=== PATIENT | male | born 1985 | race Caucasian/White ===

== ENCOUNTER 2016-07-02 07:36 | Inpatient (IN) | payer MEDICARE ==
[~2016-07-02] VITALS: Ht 180.3 cm; Wt 91.2 kg
[2016-07-02] MEDS ORDERED: HYDROmorphone 1 MG/ML (DILAUDID) SYRINGE IV ONE ×2 (07:40→09:50)
[2016-07-02] MEDS ORDERED: diphenhydrAMINE 50 MG/ML INJ (BENADRYL) IV ONE (07:40)
--- NOTE | 2016-07-02 08:18 | NUR ---
Patient reports: "I'm sleepy." Unable to rate pain response. Relaxed, eyes closed.
[2016-07-02 08:24] LABS: BASOPHILS % (AUTO) 1 % (0-2); EOSINOPHILS # (AUTO) 0.2 10^3uL; EOSINOPHILS % (AUTO) 1 % (0-4); LYMPHOCYTES # (AUTO) 3.4 X10^3; MEAN CORPUSCULAR HEMOGLOBIN 31.1 PG (26.0-34.0); MEAN CORPUSCULAR VOLUME 85 FL (80-100); MONOCYTES # (AUTO) 1.2 X10^3; MONOCYTES % (AUTO) 8 % (3-11); NEUTROPHILS # (AUTO) 9.7 X10^3; NEUTROPHILS % (AUTO) 66 % (51-67); PLATELET COUNT 286 10^3uL (150-450); WHITE BLOOD COUNT 14.65 10^3uL (4.0-11.0)
[2016-07-02 08:25] LABS: MEAN CORPUSCULAR HGB CONC 36.4 g/dL (31.0-37.0)
[2016-07-02 08:41] LABS: ALBUMIN 4.4 g/dL (3.4-5.0); ALKALINE PHOSPHATASE 79 U/L (38-126); AMYLASE* 586 U/L (25-115); ANION GAP 15.9 MEQ/L (3-15); BUN/CREATININE RATIO 16 (10-20); TOTAL PROTEIN 7.7 g/dL (6.4-8.5)
--- NOTE | 2016-07-02 09:08 | NUR ---
Patient is vomiting. Order for Zofran received.
[2016-07-02 09:09] LABS: LIPASE* 12706 U/L (23-300)
[2016-07-02] MEDS ORDERED: ONDANSETRON 2 MG/ML (Z0FRAN) 2 ML VIAL IV ONE (09:10)
[2016-07-02 09:32] LABS: BILIRUBIN,URINE Negative (Negative); CLARITY,URINE Clear; COLOR,URINE Yellow; GLUCOSE, URINE (UA) Trace (Negative); LEUKOCYTE ESTERASE ,URINE Negative (Negative); PH,URINE 5.5 (5.0 - 8.0); UROBILINOGEN,URINE 0.2 mg/dL (0.2-1.0)
[2016-07-02 09:47] LABS: URINE CENTRIFUGED VOLUME 12 mL
[2016-07-02 09:49] LABS: AMPHETAMINE SCREEN, URINE Negative (Negative); CANNABINOID SCREEN, URINE Negative (Negative); METHAMPHETAMINE SCREEN URINE S NEGATIVE (NEGATIVE); OPIATE SCREEN URINE Positive (Negative); PROPOXYPHENE STAT NEGATIVE (NEGATIVE); RBC,URINE None Seen /HPF
[2016-07-02 10:10] VITALS: BP 154/86
--- NOTE | 2016-07-02 10:10 | NUR ---
Patient admitted to room 308 from ER. Rates pain at 8/10 at this time. Pain medication was given in ER at 0950.
[2016-07-02] MEDS ORDERED: ENOXAPARIN 40 MG/0.4 ML (LOVENOX) SYR SC SCH (10:30)
[2016-07-02] MEDS ORDERED: ONDANSETRON 2 MG/ML (Z0FRAN) 2 ML VIAL IV PRN (10:30)
[2016-07-02] MEDS ORDERED: NS FLUSH 10 ML PRN IV (10:35)
[2016-07-02] MEDS ORDERED: NS FLUSH 3 ML PRN IV (10:35)
[2016-07-02] MEDS: HYDROmorphone 1 MG/ML (DILAUDID) SYRINGE IV PRN ×2 (11:49→14:06)
[2016-07-02] MEDS ORDERED: diphenhydrAMINE 50 MG/ML INJ (BENADRYL) IV PRN (14:50)
[2016-07-02] MEDS ORDERED: HYDROmorphone PCA 30 MG/30 ML (DILAUDID) VIAL IV PRN (14:50)
[2016-07-02] MEDS ORDERED: NALOXONE 0.4 MG/ML (NARCAN) 1 ML VIAL IV PRN (15:05)
[2016-07-02 16:00] VITALS: BP 140/90
--- NOTE | 2016-07-02 16:30 | NUR ---
Patient has had better pain control with the NETWORK SERVICES PROJECT MANAGER in place. Treated intermittent nausea. He remains NPO.
[2016-07-02 17:00] VITALS: BP 152/96
--- NOTE | 2016-07-02 17:24 | NUR ---
MED REC COMPLETE--current med list obtained from patient interview and retail pharmacy ([facility]). Patient confirmed that he is receiving Toujeo samples. Completed by Deepa Gloria, Pharm. D. Candidate 2017.
[2016-07-02 18:00] VITALS: BP 138/96
[2016-07-02] MEDS ORDERED: LACTATED RINGERS 1,000 ML IV SCH (18:55)
[2016-07-02] MEDS ORDERED: LACTATED RINGERS 1,000 ML IV ONE (19:12)
[2016-07-02 19:16] LABS: MEAN CORPUSCULAR HEMOGLOBIN 30.8 PG (26.0-34.0); MEAN CORPUSCULAR HGB CONC 34.6 g/dL (31.0-37.0); MEAN CORPUSCULAR VOLUME 89 FL (80-100); PLATELET COUNT 252 10^3uL (150-450); WHITE BLOOD COUNT 20.48 10^3uL (4.0-11.0)
[2016-07-02 19:32] LABS: BAND NEUTROPHILS % 2 % (0-6); EOSINOPHILS % 0 % (0-4); LYMPHOCYTES # 1.4 #; MONOCYTES # 1.2 #; MONOCYTES % 6 % (3-11); RBC MORPH NORMAL (NORMAL); SEGMENTED NEUTROPHILS % 85 % (51-67); TOTAL CELLS COUNTED 100
[2016-07-02 19:33] LABS: ALBUMIN 4.3 g/dL (3.4-5.0); ANION GAP 15.6 MEQ/L (3-15); MAGNESIUM* 1.4 mg/dL (1.6-2.3); PHOSPHORUS 4.9 mg/dL (2.4-4.9)
--- NOTE | 2016-07-02 19:50 | NUR ---
Called report to MICU in [place].
[2016-07-02 20:01] VITALS: BP 144/95
--- NOTE | 2016-07-02 20:10 | NUR ---
All patient belongings including telephone werre sent with the patient's [id number].
--- NOTE | 2016-07-02 20:20 | NUR ---
Gave report to EMS.
[2016-07-03] MEDS ORDERED: KETOROLAC 15 MG/ML (TORADOL) 1 ML VIAL IV SCH
[2016-07-03] MEDS ORDERED: NICOTINE 21 MG (NICODERM) PATCH TD SCH (09:00)
[2016-07-03] MEDS ORDERED: NS FLUSH 3 ML DAILY IV SCH (09:00)
== END 2016-07-02 20:36 | disposition short-term general hospital (02) | DRG 439 ==
LOC: EDUNIT# 07:36 → ED 07:37 → MED/SURG 09:45
PROVIDERS: ADMIT Family Medicine; ATTEND Family Medicine
DX: K85.10 Biliary acute pancreatitis without necrosis or infection (principal); R65.10 Systemic inflammatory response syndrome (SIRS) of non-infectious origin without acute organ dysfunction; Q45.3 Other congenital malformations of pancreas and pancreatic duct; K86.1 Other chronic pancreatitis; E11.9 Type 2 diabetes mellitus without complications; K21.9 Gastro-esophageal reflux disease without esophagitis; I10 Essential (primary) hypertension; G89.29 Other chronic pain; F17.200 Nicotine dependence, unspecified, uncomplicated; Z79.84 Long term (current) use of oral hypoglycemic drugs; Z79.4 Long term (current) use of insulin
CPT/HCPCS: 36415; 74176; 80053; 80069; 80307; 80320; 81003; 81015; 82150; 83690; 83735; 85025; 86140; 94762; 96361; 96374; 96375; 96376; 99282; 99284

== ENCOUNTER → 2016-07-02 | Outpatient (CLI) | payer MEDICARE | LOC: EMS 07:25 | PROVIDERS: ATTEND Family Medicine | DX: K85.90 Acute pancreatitis without necrosis or infection, unspecified (principal); K86.1 Other chronic pancreatitis ==

== ENCOUNTER 2016-10-07 08:14 | Emergency (ER) | payer MEDICARE ==
[~2016-10-07] VITALS: Ht 180.3 cm; Wt 91.0 kg
[~2016-10-07 08:14] MED LIST: AMOX-358 PO; CLON0.1T PO; CYCL10TA45 PO; HYDR-3811 PO; HYDR-3881 PO; INSU300I SQ; LISI1TAB10 PO; LSNP20T PO; METF500T4 PO; OMEP20TA PO; OMEP40CA36 PO; ONDAN4ODT PO; PROM25TA14 PO; SMV10T PO; SMV20T PO
--- OUTSIDE RECORDS SUMMARY | 2016-10-07 08:18 | XMS REPORT | Continuity of Care Document ---
Author Author [facility] Organization [facility] Address Unknown Phone Unavailable Care Team Providers Care Seasonal Clerk Name Role Phone Boo Becerra PCP Unavailable Source Comments Some departments are not documenting in the electronic medical record. If you do not see the information that you expected, contact Release of Information in the Health Information Management department at [phone] for further assistance in locating additional records.[facility] Active Allergies and Adverse Reactions No Known Allergies Current Medications Prescription Sig. Disp. Refills Start End Date Status Date hydromorphone (DILAUDID) Take 1-2 Tabs by mouth 90 Tab 0 10/23/19 Active 2 mg tablet Every 4 Hours as needed. 10 lactobacillus rhamnosus, Take 1 Cap by mouth Twice 90 Cap 3 10/23/19 Active GG, (CULTURELLE) 10 Daily With Meals. 10 billion cell Cap meropenem (MERREM) 500 Administer 20 mL through 300 mL 0 30/20 Active mg/10 mL SolR vein Every 8 Hours. 10 Dispense QS x 10 more days to complete a 14 day course senna/docusate Take 1 Tab by mouth Twice 60 Tab 3 20 Active (SENOKOT-S) 8.6/50 mg Daily. [address] Take 1 Cap by mouth 30 Cap 3 20 Active (PREVACID) 30 mg capsule Daily. 10 Active Problems Problem Noted Date Hypertension 10/13/2009 Pancreatic divisum 10/13/2009 SIRS (systemic inflammatory response syndrome) (HCC) 10/12/2009 Lactic acidosis 10/11/2009 Tachycardia 10/11/2009 Pancreatitis 10/09/2009 Nausea & vomiting 10/09/2009 Abdominal pain 10/09/2009 Leukocytosis 10/09/2009 Social History Tobacco Use Types Packs/Day Years Used Date Current Every Day Smoker Cigarettes 0.5 10 Alcohol Use Drinks/Week oz/Week Comments No Last Filed Vital Signs Vital Sign Reading Time Taken Blood Pressure 137/90 10/22/2009 11:46 AM CDT Pulse 76 10/22/2009 11:46 AM CDT Temperature 36.3 C (97.3 F) 10/22/2009 11:46 AM CDT Respiratory Rate - - Height 1.803 m (5' 10.98") 10/18/2009 1:00 PM CDT Weight 90.13 kg (198 lb 11.2 oz) 10/22/2009 7:00 AM CDT Body Mass Index 27.73 10/22/2009 7:00 AM CDT Oxygen Saturation 100% 10/22/2009 11:46 AM CDT Plan of Care Health Maintenance Due Date Last Done Comments Physical (Comprehensive) 1990 Exam Pertussis Vaccine 1994 Tetanus Vaccine 2000 Influenza Vaccine 01/24/2017 Results from Last 3 Months Not on file
--- OUTSIDE RECORDS SUMMARY | 2016-10-07 08:18 | XMS REPORT | Continuity of Care Document ---
Author Author [facility] Organization [facility] Address Unknown Phone Unavailable Care Team Providers Care Primer Supervisor Name Role Phone Boo Becerra PCP Unavailable Source Comments Some departments are not documenting in the electronic medical record. If you do not see the information that you expected, contact Release of Information in the Health Information Management department at [phone] for further assistance in locating additional records.[facility] Active Allergies and Adverse Reactions No Known [...]
[2016-10-07] MEDS: KETOROLAC 30 MG/ML (TORADOL) 1 ML VIAL IV ONE (08:35)
[2016-10-07] MEDS: SODIUM CHLORIDE FLUSH 3 ML SYR IV ONE (08:35)
[2016-10-07] MEDS: ONDANSETRON 2 MG/ML (Z0FRAN) 2 ML VIAL IV ONE (08:36)
[2016-10-07] MEDS: SODIUM CHLORIDE FLUSH 10 ML SYR IV PRN (08:36)
[2016-10-07 08:46] LABS: BASOPHILS % (AUTO) 1 % (0-2); EOSINOPHILS # (AUTO) 0.1 10^3uL; EOSINOPHILS % (AUTO) 2 % (0-4); LYMPHOCYTES # (AUTO) 2.3 X10^3; MEAN CORPUSCULAR HEMOGLOBIN 29.8 PG (26.0-34.0); MEAN CORPUSCULAR HGB CONC 35.4 g/dL (31.0-37.0); MEAN CORPUSCULAR VOLUME 84 FL (80-100); MEAN PLATELET VOLUME 11.1 FL (6.0-9.5); MONOCYTES # (AUTO) 0.9 X10^3; MONOCYTES % (AUTO) 12 % (3-11); NEUTROPHILS # (AUTO) 4.6 X10^3; NEUTROPHILS % (AUTO) 58 % (51-67); PLATELET COUNT 228 10^3uL (150-450); WHITE BLOOD COUNT 8.06 10^3uL (4.0-11.0)
[2016-10-07 08:55] LABS: ALBUMIN 4.4 g/dL (3.4-5.0); ANION GAP 14.7 MEQ/L (3-15); CALCULATED IONIZED CALCIUM 3.9 mg/dL (3.8-4.6); TOTAL PROTEIN 7.7 g/dL (6.4-8.5)
[2016-10-07] MEDS: HYDROmorphone 1 MG/ML (DILAUDID) SYRINGE IV ONE ×2 (08:57→10:00)
[2016-10-07 09:53] LABS: BILIRUBIN,URINE Negative (Negative); CLARITY,URINE Clear; COLOR,URINE Yellow; GLUCOSE, URINE (UA) 2+ (Negative); LEUKOCYTE ESTERASE ,URINE Negative (Negative); PH,URINE 5.5 (5.0 - 8.0); UROBILINOGEN,URINE 0.2 mg/dL (0.2-1.0)
[2016-10-07 10:00] LABS: RBC,URINE None Seen /HPF; URINE CENTRIFUGED VOLUME 12 mL
[2016-10-07 10:01] LABS: AMPHETAMINE SCREEN, URINE Negative (Negative); CANNABINOID SCREEN, URINE Negative (Negative); METHAMPHETAMINE SCREEN URINE S NEGATIVE (NEGATIVE); OPIATE SCREEN URINE Positive (Negative); PROPOXYPHENE STAT NEGATIVE (NEGATIVE)
[2016-10-07 10:25] VITALS: BP 158/104
--- NOTE | 2016-10-07 10:26 | NUR ---
pt refused admit
[2016-10-07] MEDS ORDERED: LSNP20T PO (23:00)
[2016-10-07] MEDS ORDERED: SMV10T PO (23:00)
[2016-10-07] MEDS ORDERED: METF500T4 PO (23:00)
[2016-10-08] MEDS ORDERED: HYDR-3811 PO (10:09)
[2016-10-08] MEDS ORDERED: [UNRECOGNIZED DRUG - CODE] PO (10:09)
== END 2016-10-07 11:07 | disposition home or self-care (01) ==
LOC: ED 08:15
DX: K85.90 Acute pancreatitis without necrosis or infection, unspecified (principal); K86.1 Other chronic pancreatitis; Z79.899 Other long term (current) drug therapy
CPT/HCPCS: 36415; 80053; 80307; 81003; 81015; 82150; 83690; 85025; 86140; 96361; 96374; 96375; 96376; 99284; J1170; J1885; J2405; J7030; 99283

== ENCOUNTER 2016-10-07 21:08 | Inpatient (IN) | payer MEDICARE ==
[~2016-10-07] VITALS: Ht 180.3 cm; Wt 94.5 kg
--- OUTSIDE RECORDS SUMMARY | 2016-10-07 21:14 | XMS REPORT | Continuity of Care Document ---
Author Author [facility] Organization [facility] Address Unknown Phone Unavailable Care Team Providers Care Fish Pitcher Name Role Phone Boo Becerra PCP Unavailable Source Comments Some departments are not documenting in the electronic medical record. If you do not see the information that you expected, contact Release of Information in the Health Information Management department at [phone] for further assistance in locating additional records.[facility] Active Allergies and Adverse Reactions No Known [...]
--- OUTSIDE RECORDS SUMMARY | 2016-10-07 21:14 | XMS REPORT | Continuity of Care Document ---
Author Author [facility] Organization [facility] Address Unknown Phone Unavailable Care Team Providers Care Bull Bucker Name Role Phone Boo Becerra PCP Unavailable Source Comments Some departments are not documenting in the electronic medical record. If you do not see the information that you expected, contact Release of Information in the Health Information Management department at [phone] for further assistance in locating additional records.[facility] Active Allergies and Adverse Reactions No Known [...]
[2016-10-07] MEDS ORDERED: ONDANSETRON 2 MG/ML (Z0FRAN) 2 ML VIAL IV ONE (21:55)
[2016-10-07] MEDS ORDERED: HYDROmorphone 1 MG/ML (DILAUDID) SYRINGE IV ONE (21:55)
--- NOTE | 2016-10-07 22:26 | History and Physical (E) ---
History & Physical PCP: Jad Dallas MD CC: Abdominal pain, n/v HPI: This is a 31 y/o w/ h/o chronic pancreatitis, DM1 and chronic pain who presented to ED at [place] earlier today w/ pain and was treated w/ IV fluids & Dilaudid and at that time did not want to be admitted so came back tonight w/ persistent pain and n/v. Patient denies f/c/s, denies chest pain and denies shortness of breath. Pain and n/v improved w/ Dilaudid and Zofran and currently on IVFs. No labs done tonight. Earlier today had labs showing elevated lipase and amylase. Patient to be admitted to the Hospitalist service for further evaluation and management. PMH: Type 1 DM, Chronic Pancreatitis (has been evaluated in [place] in the past ), Chronic pain; GERD, pancreatic divisum, migraine HAs, HTN PSH; Pancreatic Surgery and stent placement and removal in the past ALLERGIES: Please see list at end of report. HOME MEDICATIONS: Please see list at end of report. FH: Mother and father w/ DM; mother w/ HTN; h/o Pancreatic divisum in extended family SH: , has 3 children; + tobacco use ROS CONSTITUTION: Denies weight loss or gain. Denies fever or chills. HEENT: No change in vision or hearing. No sores in mouth, sore throat. CV: No chest pain, palpitations. PULM: No cough, shortness of breath, difficulty breathing. GI: See above; No diarrhea. No blood in stool. : No dysuria. No blood in urine. MS: No new muscle or joint aches and pains. NEURO: No numbness or tingling. No weakness. INTEG: No rashes, lesions, or sores. ENDO: No heat or cold intolerance. No polydipsia or polyuria. HEME/LYMPH: No easy bruising or bleeding. No swollen glands. PSYCH: No change in mood or behavior. OBJECTIVE V/S: Vital Signs Date Time Temp Pulse Resp B/P Pulse Ox O2 Delivery O2 Flow Rate FiO2 10/07/16 21:29 98.9 74 20 151/97 98 Room Air GEN: Awake, alert, oriented, NAD HEENT: EOMI, PERRL, somewhat dry oral mucosa. CV: RRR S1 S2 normal with no murmur LUNGS: CTA B ABD: Soft, non-distended; with normal bowel sounds. +ttp epigastric area EXTR: No C/C/E. Normal peripheral pulses. INTEG: No rash. NEURO: No focal motor neuro deficit. Weight: 91 kg LABS pH = 7.4; Mg = 1.4; Amylase = 411; Lipase = 10,247; A1C = 6.3; Glucose = 201; WBC = 8; Hgb = 16.8; For remainder of labs please refer to EMR - reviewed by me today MICRO IMAGING ASSESSMENT 1) Acute on Chronic Pancreatitis 2) Acute on Chronic Pain 3) Acute Dehydration 4) DM type 1 though patient unsure 5) GERD 6) HTN 7) HLD 8) Acute hypomagnesemia POA 9) Tobacco use PLAN Admit to Hospitalist Service [facility] scale insulin Labs in the AM - CMP, BMP, lipase, lipid profile IVFs that of NS to run at 125 cc/hour Dilaudid 1mg IV q 2 hours prn Protonix 40mg IV q 24 hours NPO except for sips/chips Blood glucose q 4 hours and prn Hypoglycemic protocol Zofran 4mg IV q 4 hours prn n/v Mag Ox 400mg po daily Patient does not want nicotine patch Allergies/Home Medications Allergies: Coded Allergies: No Known Drug Allergies (Unverified , 10/07/16) Reported Home Medications Scheduled Insulin Glargine,Hum.rec.anlog (Junie Schultz) 8 UNIT SQ HS (Reported) Lisinopril (Lisinopril) 20 MG PO DAILY (Reported) Metformin HCl (Metformin HCl) 500 MG PO BID (Reported) Omeprazole (Omeprazole) 40 MG PO DAILY@0800 (Reported) Simvastatin (Simvastatin) 10 MG PO HS (Reported) Copies to: End of Report . LAUREN VALLE MD October 07, 2016 22:26
--- NOTE | 2016-10-07 22:35 | NUR ---
Pt arrives to 306 via w/c from ED, accompanied by his . Rates abd pain at 6/10. Resp even and non labored on RA. See admission assessment for further details.
[2016-10-07 22:42] VITALS: BP 126/83
[2016-10-07 22:44] VITALS: BP 126/83
[2016-10-07] MEDS ORDERED: ONDANSETRON 2 MG/ML (Z0FRAN) 2 ML VIAL IV PRN (22:50)
[2016-10-07] MEDS ORDERED: ACETAMINOPHEN 325 MG TAB (TYLENOL) PO PRN (22:50)
[2016-10-07] MEDS ORDERED: METF500T4 PO (23:00)
[2016-10-07] MEDS ORDERED: LSNP20T PO (23:00)
[2016-10-07] MEDS ORDERED: SMV10T PO (23:00)
[2016-10-07] MEDS: INSULIN LISPRO 1 UNIT/0.01 ML (HUMALOG) DOSE SC SCH (23:35)
[2016-10-07] MEDS ORDERED: GLUCAGON EMERGENCY 1 MG/KIT IM PRN (23:35)
[2016-10-07] MEDS ORDERED: DEXTROSE ORAL GEL (GLUTOSE 40%) 15 GM TUBE PO PRN (23:35)
[2016-10-07] MEDS ORDERED: DEXTROSE 50% 25 GM/50 ML SYRINGE IV PRN (23:35)
[2016-10-07] MEDS ORDERED: PANTOPRAZOLE 40 MG (PROTONIX) VIAL IV ONE (23:39)
[2016-10-07] MEDS ORDERED: SODIUM CHLORIDE FLUSH 10 ML ONE (23:39)
[2016-10-07] MEDS: PANTOPRAZOLE IV 40 MG in SODIUM CHLORIDE FLUSH 10 ML IV SCH (23:42)
[2016-10-08 00:03] VITALS: BP 131/80
[2016-10-08] MEDS: HYDROmorphone 1 MG/ML (DILAUDID) SYRINGE IV PRN ×7 (00:03→20:28)
[2016-10-08 03:57] VITALS: BP 124/80
[2016-10-08 06:03] LABS: BASOPHILS % (AUTO) 0 % (0-2); EOSINOPHILS # (AUTO) 0.1 10^3uL; EOSINOPHILS % (AUTO) 1 % (0-4); LYMPHOCYTES # (AUTO) 2.1 X10^3; MEAN CORPUSCULAR HEMOGLOBIN 29.9 PG (26.0-34.0); MEAN CORPUSCULAR VOLUME 86 FL (80-100); MEAN PLATELET VOLUME 11.4 FL (6.0-9.5); MONOCYTES # (AUTO) 0.9 X10^3; MONOCYTES % (AUTO) 12 % (3-11); NEUTROPHILS # (AUTO) 4.8 X10^3; NEUTROPHILS % (AUTO) 60 % (51-67); PLATELET COUNT 172 10^3uL (150-450); WHITE BLOOD COUNT 7.99 10^3uL (4.0-11.0)
[2016-10-08 06:24] LABS: ALBUMIN 3.2 g/dL (3.4-5.0); CALCULATED IONIZED CALCIUM 4.1 mg/dL (3.8-4.6); TOTAL PROTEIN 5.9 g/dL (6.4-8.5)
--- NOTE | 2016-10-08 07:15 | NUR ---
Pt rests intermittently throughout the night. IVF infusing w/o difficulty. Pain controlled by PRN dilaudid. Resp even and non labored on RA.
[2016-10-08] MEDS: INSULIN LISPRO 1 UNIT/0.01 ML (HUMALOG) DOSE SC SCH ×4 (07:30→21:00)
--- NOTE | 2016-10-08 07:53 | NUR ---
NUTRITION ASSESSMENT Level 1 Patient: Harpreet Johnson Age/Sex: 31/M Date Screened: 10-08-16 Weight: 206.3#/93.8 kg Height: 71 inches Primary Diagnosis: pancreatitis Diet Order: NPO Relevant labs: glucose 145, lipase 1,092 Food allergies: N Nutrition Assessment Criteria Age over 80: N Body Mass Index (BMI) under 19: N Admission Screening Indicates Risk? 3 points Moderate/High Risk Diagnosis: 3 points TPN or PPN: N NPO or clear liquid diet: Yes Serum Glucose <70 or >180: N Hgb A1c >6.7: N/A Total: 6 points Risk Screen: __ Patient at low nutritional risk based on available data; reevaluate in 5-7 days __ Patient at moderate nutritional risk based on available data; reevaluate in 3-5 days _X_ Patient at high nutritional risk; complete Nutrition Assessment within 48 hours of admission.
[2016-10-08 08:00] VITALS: BP 140/85
--- NOTE | 2016-10-08 08:54 | Progress Note (E) ---
Progress Note S: Awake and alert, no nausea or vomiting Still with mild abdominal pain. He reports this feels the same as the past. O: I & O Past 24 hrs 10/08/16 07:00 Intake Total 1429 ml Balance 1429 ml IV Total 1429 ml Vital Signs Date Time Temp Pulse Resp B/P Pulse Ox O2 Delivery O2 Flow Rate FiO2 10/08/16 08:00 90 10/08/16 08:00 97.7 18 140/85 96 Room air GEN: Awake, alert, oriented, NAD HEENT: EOMI, PERRL, somewhat dry oral mucosa. CV: RRR S1 S2 normal with no murmur LUNGS: CTA B ABD: Soft, non-distended; with normal bowel sounds tender over epigastrium EXTR: No C/C/E. Normal peripheral pulses. INTEG: No rash. NEURO: No focal motor neuro deficit. Weight: 91 kg Laboratory Results Past 24 Hrs 10/08/16 05:20: Alanine Aminotransferase (ALT/SGPT) 41, Albumin 3.2, Albumin/Globulin Ratio 1.185, Alkaline Phosphatase 65, Anion Gap 11.0, Aspartate Amino Transf (AST/SGOT ) 22, BUN/Creatinine Ratio 11, Basophils # (Auto) 0.0, Basophils (%) (Auto) 0, Blood Urea Nitrogen 9, Calcium Level 8.4, Calcium/Ionized Calcium Ratio 4.1, Calculated Osmolality 276, Carbon Dioxide Level 27, Chloride Level 108, Creatinine 0.79, Eosinophils # (Auto) 0.1, Eosinophils (%) (Auto) 1, Estimat Glomerular Filtration Rate 136.7, Estimated GFR (Non- 113.0, Glucose Level 145, Hematocrit 40.30, Hemoglobin 14.1, Lipase 1092, Lymphocytes # (Auto) 2.1, Lymphocytes (%) (Auto) 26, Magnesium Level 1.6, Mean Corpuscular Hemoglobin 29.9, Mean Corpuscular Hemoglobin Concent 35.0, Mean Corpuscular Volume 86, Mean Platelet Volume 11.4, Monocytes # (Auto) 0.9, Monocytes (%) ( Auto) 12, Neutrophils # (Auto) 4.8, Neutrophils (%) (Auto) 60, Platelet Count 172, Potassium Level 4.1, Red Blood Count 4.71, Red Cell Distribution Width 12.1 , Sodium Level 142, Total Bilirubin 0.8, Total Protein 5.9, White Blood Count 7.99 ASSESSMENT 1) Acute on Chronic Pancreatitis 2) Acute on Chronic Pain 3) Acute Dehydration 4) DM type 1 though patient unsure 5) GERD 6) HTN 7) HLD 8) Acute hypomagnesemia POA 9) Tobacco use PLAN Continue IV fluids, NPO for now, advance to clears when Lipase improving and symptoms are resolving. Hbaic 9.0 , patient seen and chart reviewed and agree with above note and assessment of NUCLEAR MEDICINE TECH. Elizabeth Page APRN October 08, 2016 08:54 NOEMY COLLADO DO October 08, 2016 10:08
--- NOTE | 2016-10-08 08:58 | NUR ---
NUTRITION ASSESSMENT Level II Patient: Harpreet Johnson Age/Sex: 31/M Date Assessed: 10-08-16 ASSESSMENT Pertinent History: Patient admitted with pancreatitis and screened at high nutritional risk secondary to chronic pancreatitis with recurrent hospitalizations. PMHx includes diabetes, chronic pancreatitis, chronic pain, GERD, pancreatic divisum, migraines and HTN. He lives at home with his . Weight history includes: 210# in September 2015 (which he had lost 6-9# in the previous couple of months) and 200# in 2016. At previous admissions, I have counseled pt. and on guidelines for a low-fat diet to follow at home. Pt. has a history of not eating much out of fear that it will increase abdominal pain or cause a flare-up of his pancreatitis. Meds/Nutrition: Mag Ox, Humalog, Protonix, NS Weight: 206.3#/93.8 kg Height: 71 inches Body Mass Index (BMI): 28.8 [place] Body Weight : 172#/78.1 kg % IBW: 119% GASTROINTESTINAL Appetite: stated fair on admission Diet Order: NPO Unintentional loss of >10 lbs. in 3 months: N Difficult to chew/swallow: N Diabetes: Yes Relevant Labs: glucose 145, lipase 1,092 Calculations for Nutritional Assessment Estimated calorie needs: 22-25 kcals/kg = 2,040-2,325 kcals (minus 500 for weight loss) Estimated protein needs: 1.0-1.2 g/kg = 93-111 g./day DIAGNOSIS 1. Nutrition Diagnosis: Impaired nutrient utilization related to pancreatic dysfunction as evidenced by chronic pancreatitis with hx. weight loss and inadequate intake during flare-ups. NUTRITIONAL INTERVENTION Goal: Patient will receive adequate nutrition to meet his need within an appropriate time-frame. Plan: Will monitor length of time NPO and tolerance to diet as advanced. When advanced, recommend low-fat diet with pancreatic enzymes at meals. MONITORING & EVALUATION __ Monitor patients menu selections __ Monitor patients food intake per nursing notes _X_ Monitor NPO/clear liquid days __ Monitor lab values __ Monitor I&O __ Other
[2016-10-08] MEDS ORDERED: lisINopril 20 MG (PRINIVIL) TABLET PO SCH (09:00)
[2016-10-08] MEDS ORDERED: MAGNESIUM OXIDE 400 MG (MAG-OX) TAB PO SCH (09:00)
[2016-10-08] MEDS: PANTOPRAZOLE IV 40 MG in SODIUM CHLORIDE FLUSH 10 ML IV SCH (09:53)
[2016-10-08] MEDS ORDERED: NS FLUSH 10 ML PRN IV (10:00)
[2016-10-08] MEDS ORDERED: NS FLUSH 3 ML PRN IV (10:00)
[2016-10-08] MEDS ORDERED: [UNRECOGNIZED DRUG - CODE] PO (10:09)
[2016-10-08] MEDS ORDERED: HYDR-3811 PO (10:09)
[2016-10-08 11:47] VITALS: BP 116/78
--- NOTE | 2016-10-08 14:27 | NUR ---
MED REC COMPLETE--current med list obtained from external med history application, retail pharmacy ([facility]), and patient interview.
[2016-10-08 16:05] VITALS: BP 118/78
--- NOTE | 2016-10-08 18:20 | NUR ---
Patient's symptoms have diminished more quickly today than they have on previous admissions. He has not had any complaint of nausea and no vomiting. He has received 3 doses of PRN Dilaudid for abdominal pain rated 4 to 7/10- this has been enough to control his pain.
[2016-10-08] MEDS ORDERED: SIMvastatin 10 MG (ZOCOR) TAB PO SCH (21:00)
[2016-10-09 00:09] VITALS: BP 142/96
[2016-10-09] MEDS: HYDROmorphone 1 MG/ML (DILAUDID) SYRINGE IV PRN ×2 (00:34→04:47)
[2016-10-09 05:46] LABS: BASOPHILS % (AUTO) 1 % (0-2); EOSINOPHILS # (AUTO) 0.1 10^3uL; EOSINOPHILS % (AUTO) 2 % (0-4); LYMPHOCYTES # (AUTO) 1.9 X10^3; MEAN CORPUSCULAR HEMOGLOBIN 30.2 PG (26.0-34.0); MEAN CORPUSCULAR HGB CONC 35.3 g/dL (31.0-37.0); MEAN CORPUSCULAR VOLUME 86 FL (80-100); MEAN PLATELET VOLUME 10.8 FL (6.0-9.5); MONOCYTES # (AUTO) 0.7 X10^3; MONOCYTES % (AUTO) 11 % (3-11); NEUTROPHILS # (AUTO) 3.8 X10^3; NEUTROPHILS % (AUTO) 57 % (51-67); PLATELET COUNT 138 10^3uL (150-450); WHITE BLOOD COUNT 6.55 10^3uL (4.0-11.0)
[2016-10-09 06:34] LABS: ANION GAP 10.2 MEQ/L (3-15)
--- NOTE | 2016-10-09 06:38 | NUR ---
Patient rests in bed throughout night, though he states that he didn't sleep well. 3 doses of Dilaudid taken this shift. IV infusing without difficulties. No needs at this time.
[2016-10-09 07:34] VITALS: BP 151/92
[2016-10-09] MEDS: INSULIN LISPRO 1 UNIT/0.01 ML (HUMALOG) DOSE SC SCH (08:44)
[2016-10-09] MEDS ORDERED: NS FLUSH 3 ML DAILY IV SCH (09:00)
--- NOTE | 2016-10-09 09:20 | Discharge Instructions (E) ---
Discharge Instructions Instructions Continue same medications at home Metformin is on hold as it can cause pancreatitis. See Dr Dallas in a week to discuss possibly increasing your insulin. Contact Dr Dallas for any questions or concerns Activity Instructions as tolerates Doctor's Appointment Appt Dr Dallas in a week to discuss Metformin and possibly changing dose of insulin Discharge Diet: Carbohydrate controlled Elizabeth Page APRN October 09, 2016 09:20
--- NOTE | 2016-10-09 09:21 | Discharge Summary (E FT) ---
Discharge Summary (E FT) Admit Date October 07, 2016 at 22:18 Discharge Date October 09, 2016 Admitting Provider Fredrick Schneider MD Primary Care Provider Jad Dallas MD Attending Provider Fredrick Schneider MD Consulting Provider Hospital Course Summary PCP: Jad Dallas MD CC: Abdominal pain, n/v HPI: This is a 31 y/o w/ h/o chronic pancreatitis, DM1 and chronic pain who presented to ED at [place] earlier today w/ pain and was treated w/ IV fluids & Dilaudid and at that time did not want to be admitted so came back tonight w/ persistent pain and n/v. Patient denies f/c/s, denies chest pain and denies shortness of breath. Pain and n/v improved w/ Dilaudid and Zofran and currently on IVFs. No labs done tonight. Earlier today had labs showing elevated lipase and amylase. He did well overnight and am labs have normalized. He was adamant about going home- feels much better. BS today 129--off metformin. He will f/u PCP in a week to discuss Metformin- can cause pancreatitis. Vital Signs Date Time Temp Pulse Resp B/P Pulse Ox O2 Delivery O2 Flow Rate FiO2 10/09/16 07:34 97.9 80 18 151/92 95 Room air GEN: Awake, alert, oriented, NAD- up to chair, tolerating diet HEENT: EOMI, PERRL, moist mucosa. CV: RRR S1 S2 normal with no murmur LUNGS: CTA B ABD: Soft, non-distended; with normal bowel sounds nontender this am EXTR: No C/C/E. Normal peripheral pulses. INTEG: No rash. NEURO: No focal motor neuro deficit. Weight: 91 kg Laboratory Results Past 24 Hrs 10/08/16 05:20: Alanine Aminotransferase (ALT/SGPT) 41, Albumin 3.2, Albumin/Globulin Ratio 1.185, Alkaline Phosphatase 65, Anion Gap 11.0, Aspartate Amino Transf (AST/SGOT ) 22, BUN/Creatinine Ratio 11, Basophils # (Auto) 0.0, Basophils (%) (Auto) 0, Blood Urea Nitrogen 9, Calcium Level 8.4, Calcium/Ionized Calcium Ratio 4.1, Calculated Osmolality 276, Carbon Dioxide Level 27, Chloride Level 108, Creatinine 0.79, Eosinophils # (Auto) 0.1, Eosinophils (%) (Auto) 1, Estimat Glomerular Filtration Rate 136.7, Estimated GFR (Non- 113.0, Glucose Level 145, Hematocrit 40.30, Hemoglobin 14.1, Lipase 1092, Lymphocytes # (Auto) 2.1, Lymphocytes (%) (Auto) 26, Magnesium Level 1.6, Mean Corpuscular Hemoglobin 29.9, Mean Corpuscular Hemoglobin Concent 35.0, Mean Corpuscular Volume 86, Mean Platelet Volume 11.4, Monocytes # (Auto) 0.9, Monocytes (%) ( Auto) 12, Neutrophils # (Auto) 4.8, Neutrophils (%) (Auto) 60, Platelet Count 172, Potassium Level 4.1, Red Blood Count 4.71, Red Cell Distribution Width 12.1 , Sodium Level 142, Total Bilirubin 0.8, Total Protein 5.9, White Blood Count 7.99 Laboratory Results Past 24 Hrs 10/09/16 05:30: Anion Gap 10.2, BUN/Creatinine Ratio 7, Basophils # (Auto) 0.0, Basophils (%) ( Auto) 1, Blood Urea Nitrogen 6, Calcium Level 8.7, Carbon Dioxide Level 27, Chloride Level 107, Creatinine 0.83, Eosinophils # (Auto) 0.1, Eosinophils (%) ( Auto) 2, Estimat Glomerular Filtration Rate 129.1, Estimated GFR (Non- 106.7, Glucose Level 129, Hematocrit 38.50, Hemoglobin 13.6, Lipase 286 , Lymphocytes # (Auto) 1.9, Lymphocytes (%) (Auto) 29, Mean Corpuscular Hemoglobin 30.2, Mean Corpuscular Hemoglobin Concent 35.3, Mean Corpuscular Volume 86, Mean Platelet Volume 10.8, Monocytes # (Auto) 0.7, Monocytes (%) ( Auto) 11, Neutrophils # (Auto) 3.8, Neutrophils (%) (Auto) 57, Platelet Count 138, Potassium Level 4.3, Red Blood Count 4.50, Red Cell Distribution Width 11.7 , Sodium Level 141, White Blood Count 6.55 ASSESSMENT 1) Acute on Chronic Pancreatitis- resolved with IV fluids and rest 2) Acute on Chronic Pain 3) Acute Dehydration 4) DM type 1 5) GERD 6) HTN 7) HLD PLAN He did well overnight and pain free today- requesting to go home, freji Dallas in a week, Metformin on hold as BS was 129 today. HbA1c 9.7. He will eat small frequent meals. rest and continue same home meds. No CT done this admission as he improved so quickly and vitals were stable. Normal WBC Discharge Disposition Home today with Appt Dr Dallas in 1 week Continued Medications: Hydrocodone Bit/Acetaminophen (Hydrocodon-Acetaminophen 7.5-325) 1 Each Tablet 1 TAB PO BID #90 Insulin Glargine,Hum.rec.anlog (Toujeo Solostar) 300 Unit/1 Ml Insuln.pen 8 UNIT SQ HS PEN Lisinopril (Lisinopril) 20 Mg Tablet 20 MG PO DAILY TAB Omeprazole (Omeprazole) 40 Mg Capsule. 40 MG PO DAILY@0800 Simvastatin (Simvastatin) 10 Mg Tablet 10 MG PO HS TAB Discontinued Medications: Metformin HCl (Metformin HCl) 500 Mg Tablet 500 MG PO BID WITH MEALS TAB Promethazine Hcl (ED- Phenergan 25mg #10) 10 Tab/Btl Tablet 25 MG PO BID #60 Follow up Instructions Continue same medications at home Metformin is on hold as it can cause pancreatitis. See Dr Dallas in a week to discuss possibly increasing your insulin. Contact Dr Dallas for any questions or concerns Copies to: End of Report . Elizabeth Page APRN October 09, 2016 09:21
--- NOTE | 2016-10-09 09:55 | NUR ---
Gave the patient discharge instructions. Informed him no new scripts were issued for this visit. Educated him on the importance of not taking metformin until cleared by Dr. Ruff. Patient demonstrated verbal understanding.
--- NOTE | 2016-10-09 10:11 | NUR ---
Patient dismissed ambulatory accompanied by a SEO INTERN.
== END 2016-10-09 10:11 | disposition home or self-care (01) | DRG 440 ==
LOC: ED 21:09 → MED/SURG 22:18
PROVIDERS: ADMIT Internal Medicine; ATTEND Internal Medicine
DX: K85.90 Acute pancreatitis without necrosis or infection, unspecified (principal); E86.0 Dehydration; E83.42 Hypomagnesemia; K86.1 Other chronic pancreatitis; G89.29 Other chronic pain; E10.9 Type 1 diabetes mellitus without complications; I10 Essential (primary) hypertension; E78.5 Hyperlipidemia, unspecified; K21.9 Gastro-esophageal reflux disease without esophagitis; F17.200 Nicotine dependence, unspecified, uncomplicated; Z79.4 Long term (current) use of insulin
CPT/HCPCS: 36415; 80048; 80053; 83036; 83690; 83735; 85025; 94762; 96374; 96375; 99283